=== PATIENT | male | born 1990 | race Two or more races ===

== ENCOUNTER 2018-05-30 12:27 | Emergency (ER) | payer SELFPAY ==
[~2018-05-30] VITALS: Ht 157.5 cm; Wt 88.5 kg
[2018-05-30] MEDS ORDERED: ceFAZolin 1GM/50ML 50 ML IV ONE (12:30)
[2018-05-30] MEDS ORDERED: SODIUM CHLORIDE 0.9% 1,000 ML IV ONE (12:30)
[2018-05-30] MEDS ORDERED: TETANUS-DIPTH-ACEL PERTUSSIS 0.5ML SYRG IM ONE (12:30)
[2018-05-30 12:51] VITALS: BP 117/79
== END 2018-05-30 13:04 | disposition short-term general hospital (02) ==
LOC: ER 12:27
DX: S71.102A Unspecified open wound, left thigh, initial encounter (principal); W34.09XA Accidental discharge from other specified firearms, initial encounter; Y93.89 Activity, other specified; Y99.8 Other external cause status; Y92.89 Other specified places as the place of occurrence of the external cause
CPT/HCPCS: 73552; 90471; 96365; 99291; J0690